=== PATIENT | male | born 1945 | race Caucasian/White ===

== ENCOUNTER → 2019-05-23 | Outpatient (CLI) | payer OTHER, BC ==
[2019-05-23 15:37] LABS: CREATININE 1.2 mg/dL (0.7-1.3)
== END ==
LOC: MRI 14:07
DX: D36.10 Benign neoplasm of peripheral nerves and autonomic nervous system, unspecified (principal); G54.0 Brachial plexus disorders; R22.1 Localized swelling, mass and lump, neck; M47.812 Spondylosis without myelopathy or radiculopathy, cervical region; M47.814 Spondylosis without myelopathy or radiculopathy, thoracic region